=== PATIENT | male | born 1985 | race African-American/Black ===

== ENCOUNTER 2020-09-02 17:38 | Emergency (ER) | payer OTHER ==
[~2020-09-02] VITALS: Ht 175.3 cm; Wt 79.4 kg
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
[2020-09-02 18:57] VITALS: BP 136/90
[2020-09-02] MEDS ORDERED: IBUPROFEN600 M1 ORAL (19:29)
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
[2020-09-02 19:35] VITALS: BP 128/83
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
== END 2020-09-02 19:35 | disposition home or self-care (01) ==
LOC: EMR 17:45
DX: S62.640A Nondisplaced fracture of proximal phalanx of right index finger, initial encounter for closed fracture (principal); S10.93XA Contusion of unspecified part of neck, initial encounter; V43.52XA Car driver injured in collision with other type car in traffic accident, initial encounter; Y93.9 Activity, unspecified; Y92.411 Interstate highway as the place of occurrence of the external cause
CPT/HCPCS: 29130; 99284